=== PATIENT | male | born 1955 | race Caucasian/White ===

== ENCOUNTER → 2020-11-17 | Outpatient (CLI) | payer OTHER, MEDICARE ==
[~2020-11-17] MED LIST: ASA81BEC PO; ASPIRIN81 M2 PO; BENADRYL25 MG PO; BUPIVACAINE IV; CEPACOL SORE T1 EAC7 PO; COLACE 100 MG100 MG PO; COUMADIN7.5 MG PO; ENOXAPARIN100 MG/11 SUBQ; FISH OIL 1,001000 M2 PO; HYDROCODONE-AP1 EAC6 PO; HYDROCODONE-APA1 TA1 PO; LIPITOR 20 MG T20 M1 PO; LOTENSIN20 MG PO; LOTREL 5-20 MG1 EACH PO; MAG-AL PLUS XS30 ML PO; MIRALAX17 GM PO; NORVASC5 M1 PO; OMEPRAZOLE 20 M20 M1 PO; PERCOCET 10-321 EACH PO; PREVACID30 MG PO; SENNA8.6 MG PO; SODIUM CHLORIDE IV; TOPROL XL50 MG PO; TYLENOL325 MG PO
== END ==
LOC: LAB 08:03
PROVIDERS: ATTEND Specialist
DX: Z01.812 Encounter for preprocedural laboratory examination (principal); Z20.822 Contact with and (suspected) exposure to COVID-19

== ENCOUNTER → 2020-11-19 | Outpatient (CLI) | payer OTHER, MEDICARE ==
[~2020-11-19] VITALS: Ht 172.7 cm; Wt 99.8 kg
--- NOTE | 2020-11-19 14:56 | P ---
[facility] [place] [address] [address] [place] [address] PROCEDURE REPORT Name: ALIS WILSON Room #: REG [facility] Chao#: [id number] Admission: 11/19/20 Attend Phys: Tate Garcia Discharge: Date of : 55 Report #: [id number] THIS REPORT FOR: cc: Cecilio Shankar MD, Rene P. MD McElhinney, Christian C. MD ~ DATE OF SERVICE: 11/19/2020 PROCEDURE PERFORMED: Upper endoscopy with biopsies. HISTORY OF PRESENT ILLNESS: The patient is a 65-year-old male with a long history of gastroesophageal reflux disease, taking Prilosec b.i.d. for many years. Denies any heartburn symptoms or dysphagia. No previous history of upper endoscopy. The patient had a Hemoccult positive stool on routine physical exam recently. No history of anemia. He denies any nausea or vomiting. Plan is for EGD and colonoscopy today. DESCRIPTION OF PROCEDURE: The risks and benefits of the procedure were explained to the patient, those risks including but not limited to bleeding, perforation and the risk of sedation. He understood these risks and gave informed consent. Sedation was given using propofol per anesthesia. Next, using a standard Olympus upper endoscope, the scope was placed in the patient's mouth and advanced under direct vision through the esophagus, stomach and into the second portion of the duodenum. The larynx was normal in appearance. The upper and mid esophagus was normal in appearance. In the distal esophagus at the GE junction, 2 small areas of possible short segment Murray's were noted. Biopsies were obtained. No evidence of esophagitis or stricture. Overall, the gastric mucosa was normal. The pylorus was normal and patent. The duodenal bulb, first and second portion were all normal. The scope was then withdrawn and the procedure terminated. The patient tolerated the procedure well. IMPRESSION: 1. 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 2. Otherwise, normal upper endoscopy. RECOMMENDATIONS: 1. Await biopsy results. 2. Continue b.i.d., PPI therapy. 3. We will proceed with colonoscopy next day. [facility] [address] [address] PROCEDURE REPORT Name: ALIS WILSON Room #: REG MIRIAN Guidry#: [id number] Admission: 11/19/20 Attend Phys: Tate Garcia Discharge: Date of : 55 Report #: [id number] Thank you for allowing me to participate in his care. <ELECTRONICALLY SIGNED> By: Tate Morris MD 11/19/20 1456 0903 0912 Tate Morris MD /nt
--- NOTE | 2020-11-19 14:56 | P ---
[facility] [place] [address] [address] [place] [address] PROCEDURE REPORT Name: ALIS WILSON [facility] #: [facility] [id number] Admission: 11/19/20 Attend Phys: Tate Garcia Discharge: Date of : 55 Report #: [id number] THIS REPORT FOR: cc: Cecilio Shankar MD, Rene P. MD McElhinney, Christian C. MD ~ DATE OF SERVICE: 11/19/2020 PROCEDURE PERFORMED: Colonoscopy with biopsies. HISTORY OF PRESENT ILLNESS: The patient is a 65-year-old male with a Hemoccult positive stool noted on routine physical exam recently. He denies any obvious bright red blood per rectum or melena. No history of anemia. He does have a history of colon polyps, last colonoscopy approximately 4 years ago. Also, family history of likely colon cancer in his mother. Bowel movements have been normal. Plan is for colonoscopy. DESCRIPTION OF PROCEDURE: The risks and benefits of the procedure were explained to the patient, those risks including but not limited to bleeding, perforation and the risk of sedation. He understood these risks and gave informed consent. Sedation was given using propofol per anesthesia. Next, a digital rectal exam showed small external hemorrhoid, otherwise normal. Next, using a standard Olympus colonoscope, the scope was placed in the patient's anus and advanced under direct vision to the cecum. The overall prep was good. The cecum and ileocecal valve were normal in appearance. Ascending and transverse colon were normal. In the descending colon, a 3 mm sessile polyp was noted. This was removed with cold forceps, otherwise normal. Multiple small diverticula were noted in the sigmoid colon, no evidence of inflammation, otherwise normal. The rectal mucosa was normal. On retroflexion, small nonbleeding internal hemorrhoids were noted. The scope was then withdrawn and the procedure terminated. The patient tolerated the procedure well. IMPRESSION: 1. Small colonic polyp. 2. Sigmoid diverticulosis. 3. Internal and external hemorrhoids, nonbleeding. 4. Otherwise, normal colonoscopy. RECOMMENDATIONS: 1. Await biopsy results. 2. Repeat colonoscopy in 5 years. 3. Hemoccult positive stool may be secondary to hemorrhoids. No evidence of bleeding at this time. The patient has no history of anemia. At this point, would observe. [address] [address] PROCEDURE REPORT Name: ALIS WILSON DEANE Room #: REG MIRIAN Guidry#: [id number] Admission: 11/19/20 Attend Phys: Tate Garcia Discharge: Date of : 55 Report #: [id number] Thank you for allowing me to participate in his care. <ELECTRONICALLY SIGNED> By: Tate Morris MD 11/19/20 1456 0911 0918 Tate Morris MD /nt
--- NOTE | 2020-11-24 19:06 | PATH ---
[facility] [place] [address] [address] PATHOLOGY RPT PROCEDURE Name: ALIS WAN Room #: REG YAREDRuddy Wilson.#: [id number] Admission: 11/19/20 Date of : 55 Discharge: Report #: [id number] Path Case #: [id number] [facility] Accession Number: [id number] . 01 Material submitted: . PART A: esophagus - BX DISTAL ESOPHAGUS R/O BOWLES'S. Modifiers: distal PART B: colon - BX DESCENDING COLON POLYP. Modifiers: descending . 02 Diagnosis: A. Gastroesophageal mucosa, distal esophagus to rule out Bowles's, endoscopic biopsy: - Focal specialized columnar epithelium (gastric fundic-type mucosa) with intestinal metaplasia consistent with Bowles's metaplasia. - Negative for dysplasia. - Moderate acute and chronic inflammation present within Bowles's mucosa. - Squamous mucosa with mild esophagitis. . B. Polyp, descending colon polyp, endoscopic biopsy: - Minute tubular adenoma. - Negative for high-grade dysplasia. . (IUV:instructional technology instructor; 11/24/2020) MBR 11/24/2020 1501 Local . 02 Comment: A. The above diagnosis of Bowles's esophagus is made due to presence of intestinal metaplasia and with the assumption that the biopsies were obtained from the columnar mucosa in the distal esophagus located at least 1 cm proximal to the top of the gastric folds as per the 2016 ACG guidelines. (IUV:instructional technology instructor; 11/24/2020) . 02 Electronically signed: . Janneth Barrera MD, Pathologist NPI- [id number] . 01 Gross description: . A. The specimen is received in formalin, labeled "Alis Wan, distal esophagus BX" and consists of 3 fragments of pink-mercado tissue measuring between 0.2 x 0.2 cm and 0.3 x 0.3 cm which are entirely submitted in A1. . B. The specimen is received in formalin, labeled "Alis Wan, BX descending colon polyp" and consists of a fragment of pink-mercado tissue measuring 0.2 x 0.2 cm which is entirely submitted in B1. (SDY; 11/21/2020) SYU/SYU 11/21/2020 1504 Local . [address] [address] PATHOLOGY RPT PROCEDURE Name: ALIS WAN MARLA Room #: REG CLI Cata.Pat#: [id number] Admission: 11/19/20 Date of : 55 Discharge: Report #: [id number] Path Case #: [id number] Pathologist provided ICD-10: K22.70, N72, D12.4 . 02 CPT . 092909, 288550 Specimen Comment: A courtesy copy of this report has been sent to [phone] Specimen Comment: Report sent to Performed at: [address], [place], [place] [id number] MD Triston Prather MD Phone: [phone] Performed at: [address] [id number] MD Janneth Barrera MD Phone: [phone]
== END | disposition home or self-care (01) ==
LOC: GI 06:58
PROVIDERS: ATTEND Specialist
DX: R19.5 Other fecal abnormalities (principal); D12.3 Benign neoplasm of transverse colon; K57.30 Diverticulosis of large intestine without perforation or abscess without bleeding; K64.4 Residual hemorrhoidal skin tags; K64.8 Other hemorrhoids; K21.00 Gastro-esophageal reflux disease with esophagitis, without bleeding; K22.70 Barrett's esophagus without dysplasia; I10 Essential (primary) hypertension; E78.5 Hyperlipidemia, unspecified; Z98.890 Other specified postprocedural states; Z79.899 Other long term (current) drug therapy; Z96.653 Presence of artificial knee joint, bilateral; Z90.5 Acquired absence of kidney; Z86.010 Personal history of colon polyps; Z80.0 Family history of malignant neoplasm of digestive organs; Z88.8 Allergy status to other drugs, medicaments and biological substances
CPT/HCPCS: 62110; 62900